=== PATIENT | male | born 1995 | race Two or more races ===

== ENCOUNTER 2023-11-17 11:54 | Emergency (ER) | payer OTHER ==
[~2023-11-17] VITALS: Ht 180.3 cm; Wt 90.7 kg
[2023-11-17 13:25] LABS: HEMATOCRIT 44.9 % (39.0-48.0); HEMOGLOBIN 15.5 g/dL (13-16.00); MEAN CORPUSCULAR HEMOGLOBIN 30.1 pg (27.00-32.0); MEAN CORPUSCULAR HGB CONC 34.5 g/dl (32.0-36.0); PLATELET COUNT 296 K/uL (150-450); RED BLOOD COUNT 5.16 M/uL (4.00-6.00); RED CELL DISTRIBUTION WIDTH 14.4 % (11.5-14.5)
[2023-11-17 13:49] LABS: CALCIUM 9.2 mg/dL (8.5-10.1); CREATININE SERUM 1.04 mg/dL (0.70-1.30); GFR 84.43; POTASSIUM 3.63 mEq/L (3.5-5.1)
[2023-11-17 14:13] LABS: URINE APPEARANCE Clear; URINE BILIRRUBIN Small (NEGATIVE); URINE BLOOD NHT; URINE COLOR Dark Yellow; URINE GLUCOSE Negative (NEGATIVE); URINE LEUKOCYTE Negative; URINE NITRATE Negative; URINE PROTEIN Trace (NEGATIVE)
[2023-11-17 14:17] LABS: URINE BACTERIA 11.3 uL (0.0-1933); URINE EPITHELIAL CELLS 2.9 uL (0.0-38.8); URINE RBC 41.6 uL (0.0-20.8); URINE WBC 9.4 uL (0.0-23.2)
[2023-11-17] MEDS ORDERED: NORFLEX100MG PO (14:51)
[2023-11-17] MEDS ORDERED: DICLOFENAC POTA50 MG PO (14:51)
== END 2023-11-17 14:55 | disposition home or self-care (01) ==
LOC: ER 11:55
PROVIDERS: General Practice
DX: M94.0 Chondrocostal junction syndrome [Tietze] (principal)

== ENCOUNTER 2023-11-27 17:59 | Emergency (ER) | payer OTHER ==
[~2023-11-27] VITALS: Ht 177.8 cm; Wt 90.7 kg
[~2023-11-27 17:59] MED LIST: DICLOFENAC POTA50 MG PO; NORFLEX100MG PO
== END 2023-11-27 21:47 | disposition home or self-care (01) ==
LOC: ER 18:00
DX: K21.9 Gastro-esophageal reflux disease without esophagitis (principal); J02.9 Acute pharyngitis, unspecified

== ENCOUNTER 2024-03-07 11:13 | Emergency (ER) | payer OTHER ==
[~2024-03-07] VITALS: Ht 177.8 cm; Wt 86.2 kg
[2024-03-07 14:24] LABS: HEMATOCRIT 45.7 % (39.0-48.0); MEAN CELL VOLUME 86.7 fL (80.0-100.00); MEAN CORPUSCULAR HEMOGLOBIN 30.3 pg (27.00-32.0); MEAN CORPUSCULAR HGB CONC 34.9 g/dl (32.0-36.0); PLATELET COUNT 145 K/uL (150-450); RED BLOOD COUNT 5.27 M/uL (4.00-6.00); RED CELL DISTRIBUTION WIDTH 14.2 % (11.5-14.5)
== END 2024-03-07 16:38 | disposition home or self-care (01) ==
LOC: ER 11:13
DX: A90 Dengue fever [classical dengue] (principal); B34.9 Viral infection, unspecified; Z20.822 Contact with and (suspected) exposure to COVID-19